=== PATIENT | male | born 1935 | race African-American/Black ===

== ENCOUNTER 2018-01-01 08:42 | Inpatient (IN) | payer MEDICARE, OTHER ==
[~2018-01-01] VITALS: Ht 185.4 cm; Wt 62.6 kg
[2018-01-01 08:50] VITALS: BP 98/72
[2018-01-01] MEDS ORDERED: Ipratropium 0.02% Inh Soln 2.5ml UD ONE (08:52)
[2018-01-01] MEDS ORDERED: Albuterol ud Inhalation ONE (08:52)
--- NOTE | 2018-01-01 09:02 | Emergency Room Report ---
History of Present Illness General Chief Complaint: Dyspnea/Respdistress Source: Medical Record Present Illness HPI This patient referred from SNF due to more altered than baseline however his baseline is confused/somnolent, bedridden, maximal assistance. Pt. is in SNF since (at least) September following urethral resection September 2017 for cancer. Multiple other co-morbidities below. Today no report of fever or trauma or vomiting. The patient cannot contribute to the history. PMH: sepsis, dysphagia, cancer, MEREDITH/ATN, UTI, CHF, PVD, malnutrition, DM, HTN, BPH, anemia, hypotension, deconditioning, hypercalcemia, TURP, urethral resection September 2017, fem pop bypass, right partial foot amputation, neutropenic sepsis, continuous bladder irrigation Allergies: Coded Allergies: No Known Allergies (Unverified , 01/01/18) Nursing Documentation-PMH Hx Cardiac Problems: Yes - HF Hx Hypertension: Yes Hx Diabetes: Yes Hx Cancer: Yes Hx Neurological Problems: Yes Review of Systems Constitutional: Reports: no symptoms, see HPI ENT: Reports: no symptoms, see HPI Respiratory: Reports: see HPI, cough Cardiovascular: Reports: no symptoms Gastrointestinal: Reports: no symptoms Genitourinary: Reports: no symptoms Musculoskeletal: Reports: no symptoms Skin: Reports: no symptoms Neurological: Reports: no symptoms Endocrine: Reports: no symptoms Hematologic/Lymphatic: Reports: no symptoms All Other Systems: limited Physical Exam Vital Signs Date Time Temp Pulse Resp B/P (MAP) Pulse Ox O2 Delivery O2 Flow Rate FiO2 01/01/18 08:42 98.3 120 22 108/60 93 Room Air 98.2 Sp02 EP Interpretation: abnormal - low ~92 RA General Appearance: mild distress, cachetic, thin Head: normocephalic, atraumatic Eyes: left eye PERRL ENT: uvula midline, dry mucus membranes Neck: full range of motion, supple, no carotid bruits Respiratory: respiratory distress, accessory muscle use, rhonchi Cardiovascular #1: normal inspection, no edema Cardiovascular #2: 1+ radial (R), 1+ radial (L), 1+ femoral (R), 1+ femoral (L) Gastrointestinal: normal bowel sounds, non tender Genitourinary: other - Schwartz Neurologic: other - awake, nonverbal, nonfocused gaze Psychiatric: other - cannot evaluate Skin: no rash Medical Decision Making Diagnostic Impression: Primary Impression: Sepsis Additional Impressions: Acute on chronic kidney failure Metastatic cancer Pneumonia ER Course This patient is critically ill. He is nonverbal with eyes open, minimally responsive to calling his name. He is profoundly dehydrated and tachycardic. He is cachectic. He is DNI and has multiple serious comorbidities. I have ordered IV fluids. There is no fever, there is rhonchi, his pulse ox ~95% but dipped to high 88% and CXR with RML infiltrate and I think acute on chronic kidney failure , and near- is likely situation. Albuterol and IV fluids ordered. Lactic acid returned high and IV Ceftriaxone ordered. d/w Dr. Stuart. Accepted; I rec m /s due to limited (non-ACLS POLST) Labs analysis: lactic acid elevated BUN 42/1.1 no old to compare EKG Diagnostic Results Rate: tachycardiac Rhythm: other - sinus tachy 136 ST Segments: no acute changes Rhythm Strip Diag. Results Rhythm Strip Time: 09:00 EP Interpretation: yes Rate: sinus tach Chest X-Ray Diagnostic Results Chest X-Ray Diagnostic Results : Chest X-Ray Ordered: Yes # of Views/Limited/Complete: 1 View Indication: Shortness of Breath EP Interpretation: Yes Impression: Other - rml infiltrate Last Vital Signs Date Time Temp Pulse Resp B/P (MAP) Pulse Ox O2 Delivery O2 Flow Rate FiO2 01/01/18 08:42 98.3 120 22 108/60 93 Room Air 98.2 Status: unchanged Disposition: ADMITTED INPATIENT Admit Decision Time: 09:16 Condition: Critical Rohan Santos M.D. Jan 01, 2018 09:02
[2018-01-01 09:23] LABS: BASOPHILS % (AUTO) 1.1 % (0.0-2.0); EOSINOPHILS % (AUTO) 0.2 % (0.0-3.0); HEMATOCRIT 35.7 % (42.0-52.0); HEMOGLOBIN 10.8 G/DL (14.2-18.0); LYMPHOCYTES % (AUTO) 16.2 % (20.0-45.0); MEAN CORPUSCULAR VOLUME 93 FL (80-99); MONOCYTES % (AUTO) 6.8 % (1.0-10.0); NEUTROPHILS % (AUTO) 75.7 % (45.0-75.0); PLATELET COUNT 189 K/UL (150-450); RED BLOOD COUNT 3.83 M/UL (4.70-6.10); RED CELL DISTRIBUTION WIDTH 16.4 % (11.6-14.8); WHITE BLOOD COUNT 7.7 K/UL (4.8-10.8)
[2018-01-01 09:30] VITALS: BP 121/70
[2018-01-01] MEDS ORDERED: ATORVASTATIN CA40 MG ORAL (09:37)
[2018-01-01] MEDS ORDERED: MIRALAX17 G2 ORAL (09:37)
[2018-01-01] MEDS ORDERED: SENNA8.6 M2 PO (09:37)
[2018-01-01 09:40] LABS: ANION GAP 10 mmol/L (5-15); BLOOD UREA NITROGEN 42 mg/dL (7-18); CALCIUM 12.4 MG/DL (8.5-10.1); CARBON DIOXIDE 27 MMOL/L (21-32); CHLORIDE 112 MMOL/L (98-107); CREATININE 1.1 MG/DL (0.55-1.30); POTASSIUM 3.1 MMOL/L (3.5-5.1); SODIUM 149 MMOL/L (136-145)
[2018-01-01 09:59] LABS: ALANINE AMINOTRANSFERASE 15 U/L (12-78); ALBUMIN 2.1 G/DL (3.4-5.0); ALBUMIN/GLOBULIN RATIO 0.4 (1.0-2.7); ALKALINE PHOSPHATASE 107 U/L (46-116); ASPARTATE AMINO TRANSFERASE 127 U/L (15-37)
[2018-01-01] MEDS ORDERED: cefTRIAXone 1 GM in NS 55 ML IVPB ONE (10:30)
[2018-01-01] MEDS ORDERED: MAG-OXIDE400 M1 PO (10:46)
[2018-01-01] MEDS ORDERED: POTASSIUM 25 M25 ME1 PO (10:46)
[2018-01-01] MEDS ORDERED: ZOFRAN4 M3 ORAL (10:46)
[2018-01-01] MEDS ORDERED: ACETAMINOPHEN325 M1 ORAL (10:46)
--- NOTE | 2018-01-01 11:46 | Diagnostic Imaging Report ---
Indication: Dyspnea Comparison: None A single view chest radiograph was obtained. Findings: Heart size is normal. Basilar airspace disease demonstrated. Bones are osteopenic. IMPRESSION: Basilar infiltrates. Correlate clinically
[2018-01-01 12:40] VITALS: BP 105/62
[2018-01-01] MEDS: D5NS 1,000 ML IV SCH (15:35)
[2018-01-01 15:50] VITALS: BP 102/63
--- NOTE | 2018-01-01 17:55 | History & Physical ---
History and Physical History & Physicial dictated Song Stuart MD Jan 01, 2018 17:55
[2018-01-01 21:00] VITALS: BP 114/69
--- NOTE | 2018-01-01 22:45 | History and Physical Report ---
DATE OF ADMISSION: 01/01/2018 HISTORY OF PRESENT ILLNESS: The patient is an 82-year-old man who [facility] of weakness and dehydration. He was seen in the emergency department and given fluids and admission was arranged. Past medical history, he is known to have a high-grade neuroendocrine carcinoma and urothelial carcinoma. He has had previous urologic procedures a few months ago and has recurrent urinary infections. He was transferred here because of weakness and inability to eat. He has been getting intravenous fluids, but the family has made him DNR with no intubation. The patient can provide no additional history. PAST MEDICAL HISTORY: Urothelial carcinoma, high-grade neuroendocrine carcinoma, peripheral vascular disease, recurrent UTI, multiple lower extremity amputations, severe protein-calorie malnutrition, hypercalcemia, anemia, pancytopenia, and systolic and diastolic congestive heart failure. ALLERGIES: None. MEDICATIONS: He is unable to take any medications. The list of medicines he was previously receiving was reviewed. REVIEW OF SYSTEMS: Cannot be obtained. He is bedridden and unable to answer any questions. PHYSICAL EXAMINATION: GENERAL: The patient appears cachectic. VITAL SIGNS: The blood pressure is low at 98/72 to 121/70, heart rate is elevated at 112 to 131, respirations 20-30, and saturation is 79% to 100% on oxygen. HEENT: The head is normocephalic. NECK: No jugular venous distention. CHEST: Clear. CARDIAC: Rhythm is regular. Tachycardia. ABDOMEN: Soft and nontender. Liver and spleen not enlarged. EXTREMITIES: No clubbing, cyanosis, or edema. LABORATORY AND DIAGNOSTIC DATA: The white count is 7700, hemoglobin is 10.8, and platelets are normal. Chemistry shows elevated lactic acid and sodium is elevated at 149, potassium is low at 3.1, BUN 42, creatinine 1.1 and blood sugar 192. Calcium 12.4. Liver enzymes are elevated. Troponin is mildly elevated. Natriuretic peptide is elevated. Albumin is low at 2.1. Chest x-ray shows bibasilar airspace disease. Urinalysis is pending. IMPRESSION: 1. Metastatic cancer as noted above. 2. Hypercalcemia. 3. Dehydration with hypernatremia and azotemia. 4. Lactic acidosis. 5. Severe protein-calorie malnutrition. 6. Possible sepsis. PLAN: I have discussed his poor condition with daughter, Marion today and she will speak the other family members regarding my recommendation for discharge back to the nursing facility under hospice care. In the meantime, we will give antibiotics and fluids. He will be DNR and not to be intubated. Song Stuart M.D. DR: EDUARD JOB#: [id number] CC: Song Stuart M.D.; Fax#: [phone]
[2018-01-02] VITALS: BP 110/61
[2018-01-02 04:00] VITALS: BP 116/58
[2018-01-02] MEDS: D5NS 1,000 ML IV SCH ×2 (04:40→17:33)
[2018-01-02 08:00] VITALS: BP 131/66
[2018-01-02 12:16] VITALS: BP 131/62
[2018-01-02 16:00] VITALS: BP 125/66
--- NOTE | 2018-01-02 17:24 | General Progress Note ---
Assessment/Plan Assessment/Plan 1. Metastatic cancer, urothelial and high grade neuroendocrine 2. Hypercalcemia 3. Dehydration with hypernatremia and azotemia. 4. Lactic acidosis. 5. Severe protein-calorie malnutrition. 6. Possible sepsis. awake, nods yes/no not able to make decisions for himself no pain or distress unable to swallow disc w 2 sons; advised of status and poor prognosis hope they will agree to recommendation for hospice and dc to SNF tomorrow Subjective ROS Limited/Unobtainable: Yes Allergies: Coded Allergies: No Known Allergies (Unverified , 01/01/18) Objective Last 24 Hour Vital Signs Date Time Temp Pulse Resp B/P (MAP) Pulse Ox O2 Delivery O2 Flow Rate FiO2 01/02/18 16:00 98.1 98 22 125/66 (85) 98 98.1 01/02/18 12:16 97.5 98 24 131/62 (85) 99 97.5 01/02/18 09:00 Nasal Cannula 2.0 Nasal Cannula 2.0 Nasal Cannula 2.0 01/02/18 08:00 98.1 96 24 131/66 (87) 99 98.1 01/02/18 04:00 97.5 96 16 116/58 (77) 99 97.5 01/02/18 00:00 98.0 97 20 110/61 (77) 100 98.0 01/01/18 21:00 Nasal Cannula 2.0 Nasal Cannula 2.0 Nasal Cannula 2.0 01/01/18 21:00 97.6 105 21 114/69 (84) 98 97.6 Intake and Output 01/01/18 01/02/18 19:00 07:00 Intake Total 280 ml 937 ml Output Total 400 ml Balance -120 ml 937 ml Intake IV Total 280 ml 937 ml Output Urine Total 400 ml # Voids 2 # Bowel Movements 1 1 Height (Feet): 6 Height (Inches): 1.00 Weight (Pounds): 138 General Appearance: no apparent distress, lethargic, cachetic Neck: supple Cardiovascular: normal rate Respiratory/Chest: lungs clear Song Stuart MD Jan 02, 2018 17:24
[2018-01-02 19:30] VITALS: BP 122/66
[2018-01-03 00:33] VITALS: BP 104/56
[2018-01-03 03:49] VITALS: BP 117/61
[2018-01-03] MEDS: D5NS 1,000 ML IV SCH (05:32)
[2018-01-03 08:00] VITALS: BP 137/67
[2018-01-03 12:04] VITALS: BP 132/68
--- NOTE | 2018-01-03 13:41 | General Progress Note ---
Assessment/Plan Assessment/Plan 1. Metastatic cancer, urothelial and high grade neuroendocrine 2. Hypercalcemia 3. Dehydration with hypernatremia and azotemia. 4. Lactic acidosis. 5. Severe protein-calorie malnutrition. 6. Possible sepsis. awake, nods yes/no not able to make decisions for himself no pain or distress unable to swallow disc w son and dtr today they agree to dc back to SNF on comfort care and IV fluids no return to hospital agree to discuss hospice. Subjective ROS Limited/Unobtainable: Yes Allergies: Coded Allergies: No Known Allergies (Unverified , 01/01/18) Objective Last 24 Hour Vital Signs Date Time Temp Pulse Resp B/P (MAP) Pulse Ox O2 Delivery O2 Flow Rate FiO2 01/03/18 12:04 97.6 99 18 132/68 (89) 97 97.6 01/03/18 08:50 Nasal Cannula 2.0 Nasal Cannula 2.0 Nasal Cannula 2.0 01/03/18 08:00 98.0 101 18 137/67 (90) 97 98.0 01/03/18 03:49 97.9 101 20 117/61 (79) 91 97.9 01/03/18 00:33 99.0 92 20 104/56 (72) 100 99.0 01/02/18 21:00 Nasal Cannula 2.0 Nasal Cannula 2.0 Nasal Cannula 2.0 01/02/18 19:30 98.4 95 20 122/66 (84) 100 98.4 01/02/18 16:00 98.1 98 22 125/66 (85) 98 98.1 Intake and Output 01/02/18 01/03/18 19:00 07:00 Intake Total 900 ml 800 ml Output Total 500 ml 900 ml Balance 400 ml -100 ml Intake IV Total 900 ml 800 ml Output Urine Total 500 ml 900 ml Height (Feet): 6 Height (Inches): 1.00 Weight (Pounds): 138 Song Stuart MD Jan 03, 2018 13:40
[2018-01-03] MEDS ORDERED: D5NS 1000ml IV ONE (14:24)
[2018-01-03 16:00] VITALS: BP 128/72
--- NOTE | 2018-01-05 10:49 | Discharge Summary ---
Discharge Summary Discharge Summary _ DATE OF ADMISSION: 01/01/2018 DATE OF DISCHARGE :01/03/2018 REASON FOR ADMISSION: 82 years old male with past medical history of urothelial carcinoma, high-grade neuroendocrine carcinoma, peripheral vascular disease, multiple lower extremity amputations, recurrent UTI, severe protein calorie malnutrition, anemia, pancytopenia, systolic and diastolic congestive heart failure and hypercalcemia ,was sent from the care home facility due to weakness and dehydration. Upon evaluation patient was tachycardiac , afebrile. Lactic acid elevated 5.7, no leukocytosis; anemia with hemoglobin 10.8 hematocrit 35.7. Potassium 3.1, BUN 42 creatinine 1.1. Na-149. Albumin 2.1, calcium 12.4 EKG with sinus tachycardia , troponin with mild elevation 0.105 CXR with questionable pneumonia Patient admitted with diagnosis of dehydration , hypernatremia, azotemia , severe protein calorie malnutrition, metastatic cancer, possible sepsis, hypercalcemia. HOSPITAL COURSE: Patient admitted and started on IV fluids and empiric antibiotics Urine culture revealed Proteus ESBL and Staph aureus Patient condition was grave due to metastatic cancer and underlying infectious process. Patient's condition was discussed with the family regarding poor prognosis and futility of further treatment. Family agreed to DNR/DNI status and transfer to care home facility under hospice services. Patient was unable to swallow. Comfort care provided Supplemental oxygen provided as needed to keep pulse oximetry above 92% , pulmonary toilet provided as needed Pain management was addressed Skin care provided Bowel regimen instituted Supportive care provided Patient was transferred to care home facility under hospice care FINAL DIAGNOSES: Dehydration with hypernatremia and azotemia Metastatic cancer Severe protein calorie malnutrition Possible sepsis Hypercalcemia DISCHARGE MEDICATIONS: See Medication Reconciliation list. DISCHARGE INSTRUCTIONS: Patient was discharged to care home facility under hospice care Patient DNR/DNI status I have been assigned to dictate discharge summary for this account. I was not involved in the patient's management. Adela Foley NP Jan 05, 2018 10:49
--- NOTE | 2018-01-05 12:30 | Cardiology Report ---
APPROVED REPORT EKG Measurement Heart [id number] IA 150P-5 [id number] Sinus tachycardia with premature atrial complexes Septal infarct, age undetermined Abnormal ECG
== END 2018-01-03 18:25 | DRG 871 ==
LOC: EDBD 08:42 → EMR 09:18 → EDBEDREQSVC 09:52 → 4W 10:00 → EDBEDREQ 10:28 → EDBEDREQSVC 10:30 → EDBEDREQ 11:10
DX: A41.9 Sepsis, unspecified organism (principal); E43 Unspecified severe protein-calorie malnutrition; E87.0 Hyperosmolality and hypernatremia; Z68.1 Body mass index [BMI] 19.9 or less, adult; C7A.1 Malignant poorly differentiated neuroendocrine tumors; E86.0 Dehydration; Z66 Do not resuscitate; E83.52 Hypercalcemia; D64.9 Anemia, unspecified; Z51.5 Encounter for palliative care; I73.9 Peripheral vascular disease, unspecified
CPT/HCPCS: 36415; 71045; 80053; 83605; 83735; 83880; 84484; 85025; 87040; 87081; 87086; 87181; 93005; 94640; 94664; 99285